=== PATIENT | male | born 1965 | race Caucasian/White ===

== ENCOUNTER 2016-11-15 07:56 | Day surgery (SDC) | payer MEDICAID ==
[2016-11-15] MEDS ORDERED: Acetaminophen 1,000 MG in Premix Bag 1 BAG IV ONE (08:47)
[2016-11-15] MEDS ORDERED: Lactated Ringers 1,000 ML IV SCH (09:15)
[2016-11-15] MEDS ORDERED: Bupivacaine 0.5%/EPINEPHrine 1:200,000 30 ML SDV ONE (09:18)
[2016-11-15] MEDS ORDERED: Rocuronium 50 MG/5 ML Vial ONE (09:27)
[2016-11-15] MEDS ORDERED: Midazolam 1 MG/ML 2 ML SDV ONE (09:33)
[2016-11-15] MEDS ORDERED: fentaNYL 100 MCG/2 ML SDV ONE (09:33)
[2016-11-15] MEDS ORDERED: Propofol 200 MG/20 ML SDV ONE (09:34)
[2016-11-15] MEDS ORDERED: Ketamine 200 MG/20 ML MDV ONE (09:34)
[2016-11-15] MEDS ORDERED: ceFAZolin 1 GM Vial ONE (09:43)
[2016-11-15] MEDS ORDERED: ePHEDrine 50 MG/ML SDV ONE (10:12)
[2016-11-15] MEDS ORDERED: Lactated Ringers 1,000 ML ONE (10:28)
[2016-11-15] MEDS ORDERED: Ketorolac 30 MG/ML SDV ONE (10:42)
[2016-11-15] MEDS ORDERED: Glycopyrrolate 0.2 MG/ML 2 ML SDV ONE (10:42)
[2016-11-15] MEDS ORDERED: Edrophonium Chloride 150 MG/15 ML MDV ONE (10:42)
[2016-11-15] MEDS ORDERED: Acetaminophen/HYDROcodone 325-5 MG Tab PO PRN ×2 (12:13→12:19)
--- NOTE | 2016-11-15 14:54 | OR ---
PREOPERATIVE DIAGNOSES: 1. Recurrent right inguinal hernia. 2. Umbilical incisional hernia. POSTOPERATIVE DIAGNOSES: 1. Recurrent right inguinal hernia. 2. Umbilical incisional hernia. PROCEDURES PERFORMED: 1. Recurrent right inguinal hernia with a mesh overlay. 2. Primary repair of an umbilical incisional hernia. INDICATION: The patient is a 50-year-old male who presents with the above and presents for repair at this time. PROCEDURE IN DETAIL: The patient was brought to the operating room. General anesthetic administered to the right groin, and the umbilical region were prepped and draped in a sterile manner. First attention was turned to the right groin. A 15-blade was used to make a transverse incision just lateral and superior to the pubic tubercle. Cautery was used to go through the subcutaneous tissue down to the fascia. Fascia was opened with a 15 blade, followed by Metzenbaum. Blunt dissection was done around the cord and Dina drain was placed for retraction. The patient had a direct defect, which was dissected free from the surrounding tissue, inverted and imbricated with 0 Vicryl interrupted sutures. Next, I placed the flat-base mesh over the floor of the canal with the 2 tails around the cord. I used the 0 Vicryl suture medially to the pubic tubercle, inferiorly to Fredrick's ligament, laterally to the shelving portion of the inguinal ligament, and superior to the conjoined tendon. Two tails were wrapped around the cord to reapproximate the internal ring. External oblique was closed with a running 2-0 Vicryl suture, subcutaneous tissues closed with 3-0 Vicryl running suture, and the skin was closed with a running 4-0 Vicryl subcuticular suture and Dermabond. Next, attention was turned to the umbilical incisional hernia. The patient had a previous incision in the infraumbilical region. A 15 blade was used to open up the incision and cautery was used to go through the subcutaneous tissue. The umbilical skin was taken off the fascia with cautery. The patient had a small defect present. I closed it primarily with 2-0 Ethibond interrupted sutures. The umbilical skin was reapproximated with 3-0 Vicryl interrupted sutures. Skin was closed with a running 4-0 Vicryl, subcuticular suture, and Dermabond. The patient was brought to PACU postoperatively and will be sent to home later today. BKD: 11/15/2016 10:50:30 MODL: 11/15/2016 14:42:03 /[id number]
[2016-11-15 14:56] VITALS: BP 122/85
== END 2016-11-15 14:40 | disposition home or self-care (01) ==
LOC: VM.SDS 07:56
PROVIDERS: ATTEND Surgery
PROC: 0YU50JZ Supplement Right Inguinal Region with Synthetic Substitute, Open Approach (ICD-10-PCS; principal; 2016-11-15)
PROC: 0WQF0ZZ Repair Abdominal Wall, Open Approach (ICD-10-PCS; 2016-11-15)
DX: K40.91 Unilateral inguinal hernia, without obstruction or gangrene, recurrent (principal); K42.9 Umbilical hernia without obstruction or gangrene
CPT/HCPCS: 49520; 49585; A9270; J0690; J1885; J2250; J2704; J3010; J7120; C1781; J3490